=== PATIENT | male | born 1965 ===

== ENCOUNTER → 2018-11-29 | Outpatient (CLI) | payer OTHER ==
--- NOTE | 2018-11-29 13:14 | RADIOLOGY IMAGING REPORT ---
FACILITY: [facility] PATIENT NAME: Kevin Haley : 1965 MR: [id number] V: [id number] EXAM DATE: ORDERING PHYSICIAN: JESICA GALARZA TECHNOLOGIST: Location: [facility] [place] Patient: Kevin Haley : 1965 Visit/Account:[id number] Date of Sevice: 11/29/2018 Technique: LIVER HISTORY: Elevated liver enzymes Comparison: None Technique: Multiple grayscale, color and Doppler sonographic images were obtained for an ultrasound o f the right upper quadrant. Findings: The liver is enlarged in size measuring 17.2 cm. Overall, there is coarse and increased echotexture throughout the hepatic parenchyma. There is normal hepatopedal portal venous flow. Gallbladder wall thickness is 2 mm with no evidence of shadowing stone or sludge within the gallbladd er lumen. Negative sonographic Kirkpatrick's sign reported by the technologist. Common duct measures 4 mm in maximum diameter with no evidence of shadowing stone. Imaged portions of the pancreas are unremarkable. Abdominal aorta and IVC are patent and unremarkable. The right kidney is normal in size, contour, and echotexture measuring 11.5 cm x 7.4 cm x 4.8 cm. IMPRESSION: 1. Hepatomegaly with coarse and heterogeneous echotexture throughout the hepatic parenchyma. This ma y be secondary to hepatic steatosis and/or diffuse hepatocellular disease. Report Dictated By: Hunter Preston DO at 11/29/2018 1:05 PM Report E-Signed By: Hunter Preston DO at 11/29/2018 1:08 PM WSN:[id number]
== END ==
LOC: US 11:20
PROVIDERS: ATTEND Family Medicine
DX: R16.0 Hepatomegaly, not elsewhere classified (principal); R11.10 Vomiting, unspecified
CPT/HCPCS: 76705